=== PATIENT | male | born 2000 | race Hispanic/Latino ===

== ENCOUNTER 2019-01-02 19:20 | Emergency (ER) | payer SELFPAY ==
[2019-01-02] MEDS ORDERED: Adacel (T-DAP) 0.5 ML SYRINGE ONE (19:29)
[2019-01-02] MEDS ORDERED: Sulfameth/Trimethoprim DS 800-160mg TAB ONE (19:29)
[2019-01-02] MEDS ORDERED: Bacitracin 1 PK ONE (19:29)
== END 2019-01-02 19:35 | disposition home or self-care (01) ==
LOC: BURERS 19:20
DX: S61.212A Laceration without foreign body of right middle finger without damage to nail, initial encounter (principal); Z23 Encounter for immunization; W26.0XXA Contact with knife, initial encounter
CPT/HCPCS: 90471; 90715